=== PATIENT | male | born 1995 | race Hispanic/Latino ===

== ENCOUNTER 2019-02-04 18:15 | Emergency (ER) | payer SELFPAY ==
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
== END 2019-02-04 19:39 | disposition home or self-care (01) ==
LOC: ER 18:15
DX: G44.319 Acute post-traumatic headache, not intractable (principal); V43.52XA Car driver injured in collision with other type car in traffic accident, initial encounter
CPT/HCPCS: 70450; 72125; 99284